=== PATIENT | female | born 1995 | race Caucasian/White ===

== ENCOUNTER 2020-02-10 00:54 | Emergency (ER) | payer OTHER ==
[~2020-02-10] VITALS: Ht 160 cm; Wt 119.7 kg
[2020-02-10 01:14] VITALS: BP 134/95
== END 2020-02-10 01:14 | disposition left against medical advice (07) ==
LOC: ED 00:54
DX: Z53.21 Procedure and treatment not carried out due to patient leaving prior to being seen by health care provider (principal)